=== PATIENT | female | born 1975 | race Caucasian/White ===

== ENCOUNTER 2016-11-09 14:32 | Emergency (ER) | payer OTHER ==
[~2016-11-09] VITALS: Ht 160 cm; Wt 60.0 kg
[~2016-11-09 14:32] MED LIST: AMOX500T PO; LIDO2%S2 PO; WELL150T PO
[2016-11-09 14:36] VITALS: BP 166/104; PULSE 104; RESP 16; TEMP 98.1; O2SAT 96
[2016-11-09] MEDS ORDERED: ROBA750T PO (14:53)
[2016-11-09] MEDS ORDERED: IBUP-232 PO (14:53)
--- NOTE | 2016-11-09 14:54 | PD ---
HPI Chief Complaint: Injury Time Seen by Provider: 14:49 Travel History International Travel<30 days: No Contact w/Intl Traveler<30days: No Traveled to known affect area: No History of Present Illness HPI 5-year-old female presents to the emergency department for evaluation of low back pain that occurred at 1 PM today. She states this started after she bent over at work. Patient denies a history of back pain. She denies a traumatic injury. No fevers or chills. No loss of bowel or bladder control. No saddle anesthesias. She states the pain did radiate down her right leg, but that has resolved. She took ibuprofen approximately 1 PM which did help improve her pain. Patient states she has no chronic medical problems and takes no prescribed medications. She denies any chance of . Patient is ambulatory in the emergency department. [facility] Past Medical History Cancer: Yes (SKIN CANCER SQUAMOUS) Diabetes: No Glaucoma: No Hepatitis: No Hiatal Hernia: No Hypertension: No Thyroid Disease: No ?: Not LMP: 11/09/16 Past Surgical History Abdominal Surgery: No Cardiac Surgery: No Ear Surgery: No Endocrine Surgery: No Eye Surgery: No Genitourinary Surgery: No Gynecologic Surgery: No Oral Surgery: No Pacemaker: No Thoracic Surgery: No Social History Alcohol Use: Yes (RARELY) Tobacco Use: No Substance Use: No Allergies-Medications (Allergen,Severity, Reaction): Coded Allergies: No Known Allergies (Verified , 11/09/16) Reported Meds & Prescriptions Reported Meds & Active Scripts Active No Active Prescriptions or Reported Medications Review of Systems Except as stated in HPI: all other systems reviewed are Neg Physical Exam Narrative GENERAL: Well-developed well-nourished female patient, ambulatory. Afebrile. SKIN: Warm and dry. HEAD: Normocephalic. Atraumatic. EYES: No scleral icterus. No injection or drainage. NECK: Supple, trachea midline. No JVD or lymphadenopathy. CARDIOVASCULAR: Regular rate and rhythm without murmurs, gallops, or rubs. RESPIRATORY: Breath sounds equal bilaterally. No accessory muscle use. Lungs sounds are clear to auscultation. GASTROINTESTINAL: Abdomen soft, non-tender, nondistended. MUSCULOSKELETAL: No cyanosis, or edema. Bilateral upper and lower extremity strength 5/5. All extremities are neurovascularly intact. BACK: No obvious deformity. No CVA tenderness. Tenderness to palpation over midline lumbar spine and bilateral lumbar paraspinal musculature. Straight leg raise is negative bilaterally. Data Data Last Documented VS Vital Signs Date Time Temp Pulse Resp B/P Pulse Ox O2 Delivery O2 Flow Rate FiO2 11/09/16 14:36 98.1 104 16 166/104 96 Room Air MDM Medical Decision Making Medical Screen Exam Complete: Yes Emergency Medical Condition: Yes Medical Record Reviewed: Yes Differential Diagnosis Muscle strain versus muscle spasm versus herniated disc Narrative Course 41-year-old female presents to the emergency department for evaluation of low back pain that started out 1 PM today, 2 hours ago after bending over. Physical exam is reassuring. Symptoms are most consistent with a muscle strain. Patient is given Robaxin 500 mg by mouth. She'll be discharged with a prescription for ibuprofen and Robaxin. She is to follow-up with Worker's Comp. Diagnosis Primary Impression: Low back pain Qualified Code: M54.5 - Acute bilateral low back pain without sciatica Additional Impression: Muscle strain Referrals: Primary Care Physician call for appointment Patient Instructions: Acute Low Back Pain (ED), General Instructions, Muscle Strain (ED) Additional Instructions: Take ibuprofen as instructed as needed with food for pain. Take Robaxin as directed as needed. Rotate ice/heat. Follow-up with your worker's comp doctor. Return to the emergency department for any acute worsening of symptoms. Med/Other Pt SpecificInfo: Prescription(s) given Scripts Methocarbamol (Robaxin)750 Mg [id number] Mg PO TID PRN (MUSCLE SPASM) #21 TAB Ref 0 Prov:Danelle Heart 11/09/16 Ibuprofen 600 Mg Uic486 Mg PO TID PRN (PAIN SCALE 1 TO 10) #21 TAB Ref 0 Prov:Danelle Heart 11/09/16 Disposition: 01 DISCHARGE HOME Condition: Stable Danelle Heart Nov 09, 2016 14:54
[2016-11-09] MEDS ORDERED: METHOCARBAMOL 500 MG TAB PO ONE (15:00)
== END 2016-11-09 15:39 | disposition home or self-care (01) ==
LOC: NEPB 14:32
DX: M54.5 Low back pain (principal)
CPT/HCPCS: 99283

== ENCOUNTER → 2017-04-01 | Outpatient (CLI) | payer OTHER ==
[~2017-04-01] MED LIST changes: -AMOX500T PO; +IBUP-232 PO; -LIDO2%S2 PO; +ROBA750T PO; -WELL150T PO
[2017-04-01 12:49] LABS: AUTOMATED NEUTROPHIL # 4.3 TH/MM3 (1.8-7.7); BASOPHIL # 0.1 TH/MM3 (0-0.2); BASOPHIL % 0.9 % (0.0-2.0); EOSINOPHIL # 0.2 TH/MM3 (0-0.4); EOSINOPHIL % 3.3 % (0.0-4.0); HEMATOCRIT 39.8 % (35.0-46.0); HEMO FLAGS DIFF FINAL; LYMPH % 26.8 % (9.0-44.0); LYMPHOCYTE # 1.9 TH/MM3 (1.0-4.8); MEAN CELL VOLUME 89.9 FL (80.0-100.0); MEAN CORPUSCULAR HEMOGLOBIN 29.6 PG (27.0-34.0); MEAN CORPUSCULAR HGB CONC 32.9 % (32.0-36.0); MONO % 8.3 % (0.0-8.0); NEUT % 60.7 % (16.0-70.0); PLATELET COUNT 223 TH/MM3 (150-450); RED BLOOD COUNT 4.43 MIL/MM3 (4.00-5.30); RED CELL DISTRIBUTION WIDTH 13.3 % (11.6-17.2); WHITE BLOOD COUNT 7.1 TH/MM3 (4.0-11.0)
[2017-04-01 13:18] LABS: ANION GAP 5 MEQ/L (5-15); AST (GOT) 9 U/L (15-37); BICARBONATE 29.8 MEQ/L (21.0-32.0); BLOOD UREA NITROGEN 13 MG/DL (7-18); CHLORIDE 104 MEQ/L (98-107); POTASSIUM 3.7 MEQ/L (3.5-5.1); SODIUM (NA) 139 MEQ/L (136-145)
[2017-04-01 13:20] LABS: GLOMERULAR FILTRATION RATE 94 ML/MIN (>89); GLUCOSE,FASTING 89 MG/DL (74-99)
[2017-04-01 13:34] LABS: ALKALINE PHOSPHATASE 69 U/L (45-117); ALT (GPT) 22 U/L (10-53); LDL CHOLESTEROL 92 MG/DL (0-99); TOTAL BILIRUBIN ADULT 0.4 MG/DL (0.2-1.0)
== END ==
LOC: OLAB 07:54
DX: R53.81 Other malaise (principal); Z79.899 Other long term (current) drug therapy
CPT/HCPCS: 80053; 80061; 84443; 85025

== ENCOUNTER → 2017-05-28 | Day surgery (SDC) | payer OTHER ==
[~2017-05-28] VITALS: Ht 160 cm; Wt 57.6 kg
[~2017-05-28] MED LIST changes: +*morphine SULFATE 8 MG/ML PERIprocedure ONLY ONE; +APREPITANT 40 MG CAP ONE; +BACITRACIN TOP OINT 15 GM TUBE ONE; +BUPIVACAINE/EPINEPHRINE 0.5% PF 10 ML VIAL ONE; +CHLORHEXIDINE GLUCONATE 2 % 1 PACK (2 CLOTHS) TOPICAL PRN; +DEXAMETHASONE SOD PHOS 4 MG/ML VIAL ONE; +DEXMEDETOMIDINE HCL 200 MCG/2 ML VIAL ONE; +DO NOT ADM ANY ANTICOAGULANT DRUGS PRN; +FAMOTIDINE 20 MG/2 ML VIAL ONE; +GELATIN 12 MM/7 MM FOAM ONE; -IBUP-232 PO; +INSULIN HUMAN REGULAR 1,000 UNITS/10 ML VIAL SQ PRN; +LACTATED RINGER'S 1000 ML IV PRN; +LIDOCAINE 1%/EPINEPHrine 1:100,000 SOLN 20 ML VIAL ONE; +METOPROLOL TARTRATE 25 MG TAB PO PRN; +MIDAZOLAM HCL 2 MG/2 ML VIAL ONE; +NEOSTIGMINE 3 MG/3 ML SYR IV ONE; +ONDANSETRON HCL 4 MG/2 ML VIAL IV PUSH ONE; +ONDANSETRON HCL 4 MG/2 ML VIAL IV PUSH PRN; +ONDANSETRON HCL 4 MG/2 ML VIAL ONE; +OXYMETAZOLINE HCL 0.05% 15 ML NASAL SPRAY ONE; +POVIDONE IODINE 5% (ANTISEPSIS KIT) 4 APPLICATIONS EACH NARE PRN; +PROPOFOL 200 MG/20 ML AMP IV ONE; -ROBA750T PO; +SODIUM CHLORID 0.9% 500 ML IV PRN; +WELLTAB39 PO; +ceFAZolin INJ 1,000 MG VIAL IV ONE; +fentaNYL CITRATE 250 MCG/5 ML AMP ONE; +hydrALAZINE HCL 20 MG/ML VIAL IV ONE; +hydrALAZINE HCL 20 MG/ML VIAL ONE
[2017-05-28 10:23] VITALS: BP 111/73; PULSE 76; RESP 20; TEMP 98.4; O2SAT 100
[2017-05-28 10:40] LABS: AUTOMATED NEUTROPHIL # 3.9 TH/MM3 (1.8-7.7); BASOPHIL # 0.1 TH/MM3 (0-0.2); BASOPHIL % 1.3 % (0.0-2.0); EOSINOPHIL # 0.3 TH/MM3 (0-0.4); EOSINOPHIL % 4.5 % (0.0-4.0); HEMATOCRIT 40.4 % (35.0-46.0); HEMO FLAGS DIFF FINAL; LYMPH % 30.8 % (9.0-44.0); LYMPHOCYTE # 2.2 TH/MM3 (1.0-4.8); MEAN CELL VOLUME 89.9 FL (80.0-100.0); MEAN CORPUSCULAR HEMOGLOBIN 30.4 PG (27.0-34.0); MEAN CORPUSCULAR HGB CONC 33.9 % (32.0-36.0); MONO % 8.5 % (0.0-8.0); NEUT % 54.9 % (16.0-70.0); PLATELET COUNT 206 TH/MM3 (150-450)
[2017-05-28] MEDS: ACETAMINOPHEN/CODEINE 300 MG/30 MG TAB PO PRN ×2 (16:40→17:10)
[2017-05-28 17:30] VITALS: PULSE 88; TEMP 98.8; O2SAT 99
[2017-05-28 17:45] VITALS: BP 145/96; RESP 16
--- NOTE | 2017-05-29 13:04 | MP ---
cc: LUCIANO ROWE MD DATE OF SURGERY 05/28/2017 PREOPERATIVE DIAGNOSES Nasal obstruction, nasal septal deviation, turbinate hypertrophy. POSTOPERATIVE DIAGNOSES Nasal obstruction, nasal septal deviation, turbinate hypertrophy as well as nasal polyps. PROCEDURE PERFORMED 1. Nasal polypectomy (code 70289) 2. Robyn bullosa excision, left side (code 82622). 3. Open septal reconstruction (code 91768). 4. Turbinoplasty submucous bilaterally (code 71310). FINDINGS Nasal septal deviation to the right. 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 Left greater than right middle turbinate polyposis. BLOOD LOSS Minimal. SPECIMEN Nasal polyp on the left. IMPLANTS Telfa pad placed bilaterally. Nasopore dressing placed bilaterally. COMPLICATIONS None. DISPOSITION The postanesthesia care unit in stable condition. INDICATIONS FOR SURGERY The patient is a pleasant 42-year-old female with a history of nasal obstruction refractory to maximal medical therapy to include a nasal steroids, nasal antihistamines, oral antibiotics and oral antihistamines. Physical examination with a nasal endoscopy as well as CT scan was consistent with nasal septal radiation to the right, turbinate hypertrophy bilaterally as well as left robyn bullosa of the middle turbinate. Thus was elected to proceed with surgery for the above. DESCRIPTION OF SURGERY After informed consent was obtained, the patient was brought to the main operating room for she underwent general endotracheal anesthesia. Head turned 90 degrees in preparation for surgery. Attention was paid to the patient's nasal cavity, pledgets impregnated with Afrin were inserted into the patient's nasal cavity bilaterally. Of note there was obstruction easily noted on the left with large inferior turbinates. After approximately 5 minutes, 10 mL of 0.5% Marcaine with epinephrine 1:200,000 was injected into the patient's septum and throughout the patient's lateral nasal sidewalls and turbinates. The patient was now prepped and draped in standard fashion for nasal surgery. After approximately 10 minutes the equipment was brought into the field using video assisted endoscopic guidance the nose was carefully examined with findings as previously noted. The septum was addressed. Specifically a left subcutaneous facial incision was made. Nasal perichondrial flaps were raised on the left. Dissection performed__ along the medial edge, dissection was done on the contralateral side of the septum and ___offending septal cartilage was removed and/or repositioned. Once the septum was ___towards the midline, анна-transfixion incision was closed with a 4-0 chromic and a whipstitch was used ___to coapt____ septum. Inferior turbinates were addressed. Submucous turbinoplasty was begun___ by small incision was made in the left anterior turbinate at the anterior aspect. Dissection was made overlying the bone __and in the__ tissue of the inferior turbinate with microdebrider ___ ____ co-blater was used to coblate the turbinate tissues surrounding the mucosal edge. The inferior turbinate was then out fractured thereby greatly enlarging the airway. The right inferior turbinate was addressed in a similar fashion with submucous___ coblation and microdebriding to decrease the size of the inferior turbinate and this was followed by inferior turbinate out fracture on the right. The endoscope was used to further visualize nasopharynx. The left robyn bullosa middle turbinate was very large in nature. This was reinjected with local anesthesia. A __sickle knife____ was used to excise the lateral two- thirds of the robyn bullosa, and there was noticeably large polypoid tissue of the left middle turbinate as well. This was removed and sent for pathology. Microdebrider was used to smooth the edges of the remaining middle turbinate on the left. The patient tolerated the procedure well. The airway was noted to be widely patent at this time. Telfa pads were placed bilaterally. The patient's nose was secured underneath with the suture. This was done after Nasopore dressing was placed bilaterally in the nasal cavity lateral to the mild turbinate. The patient tolerated the procedure well, was awakened from anesthesia and transferred to the recovery room in stable condition. There were no complications. Luciano Rowe MD CCP/KK /3:16 PM /12:54 PM [facility]ITALKeke
== END | disposition home or self-care (01) ==
LOC: HSDC 09:29
PROVIDERS: ATTEND Otolaryngology Otolaryngology/Facial Plastic Surgery
PROC: 09SM0ZZ Reposition Nasal Septum, Open Approach (ICD-10-PCS; principal; 2017-05-28 12:39)
PROC: 09TL8ZZ Resection of Nasal Turbinate, Via Natural or Artificial Opening Endoscopic (ICD-10-PCS; principal; 2017-05-28 12:39)
PROC: 09BL8ZX Excision of Nasal Turbinate, Via Natural or Artificial Opening Endoscopic, Diagnostic (ICD-10-PCS; principal; 2017-05-28 12:39)
PROC: 09BL8ZZ Excision of Nasal Turbinate, Via Natural or Artificial Opening Endoscopic (ICD-10-PCS; principal; 2017-05-28 12:39)
DX: J34.89 Other specified disorders of nose and nasal sinuses (principal); J34.2 Deviated nasal septum; J34.3 Hypertrophy of nasal turbinates; J31.0 Chronic rhinitis; J33.8 Other polyp of sinus; F32.9 Major depressive disorder, single episode, unspecified; Z87.891 Personal history of nicotine dependence
CPT/HCPCS: 00160; 21335; 30140; 31240; 85025; 88304; J0360; J0690; J1100; J2250; J2270; J2405; J2710; J3010; J7120; J8501; 88305

== ENCOUNTER 2017-08-06 13:36 | Emergency (ER) | payer OTHER ==
[~2017-08-06] VITALS: Ht 160 cm; Wt 60.0 kg
[~2017-08-06 13:36] MED LIST changes: -*morphine SULFATE 8 MG/ML PERIprocedure ONLY ONE; -APREPITANT 40 MG CAP ONE; -BACITRACIN TOP OINT 15 GM TUBE ONE; -BUPIVACAINE/EPINEPHRINE 0.5% PF 10 ML VIAL ONE; -CHLORHEXIDINE GLUCONATE 2 % 1 PACK (2 CLOTHS) TOPICAL PRN; -DEXAMETHASONE SOD PHOS 4 MG/ML VIAL ONE; -DEXMEDETOMIDINE HCL 200 MCG/2 ML VIAL ONE; -DO NOT ADM ANY ANTICOAGULANT DRUGS PRN; -FAMOTIDINE 20 MG/2 ML VIAL ONE; -GELATIN 12 MM/7 MM FOAM ONE; -INSULIN HUMAN REGULAR 1,000 UNITS/10 ML VIAL SQ PRN; -LACTATED RINGER'S 1000 ML IV PRN; -LIDOCAINE 1%/EPINEPHrine 1:100,000 SOLN 20 ML VIAL ONE; -METOPROLOL TARTRATE 25 MG TAB PO PRN; -MIDAZOLAM HCL 2 MG/2 ML VIAL ONE; -NEOSTIGMINE 3 MG/3 ML SYR IV ONE; -ONDANSETRON HCL 4 MG/2 ML VIAL IV PUSH ONE; -ONDANSETRON HCL 4 MG/2 ML VIAL IV PUSH PRN; -ONDANSETRON HCL 4 MG/2 ML VIAL ONE; -OXYMETAZOLINE HCL 0.05% 15 ML NASAL SPRAY ONE; -POVIDONE IODINE 5% (ANTISEPSIS KIT) 4 APPLICATIONS EACH NARE PRN; -PROPOFOL 200 MG/20 ML AMP IV ONE; -SODIUM CHLORID 0.9% 500 ML IV PRN; -ceFAZolin INJ 1,000 MG VIAL IV ONE; -fentaNYL CITRATE 250 MCG/5 ML AMP ONE; -hydrALAZINE HCL 20 MG/ML VIAL IV ONE; -hydrALAZINE HCL 20 MG/ML VIAL ONE
[2017-08-06 13:40] VITALS: BP 190/126; PULSE 130; RESP 20; TEMP 98.9; O2SAT 96
--- NOTE | 2017-08-06 13:49 | PD ---
Physical Exam Date Seen by Provider: Aug 06, 2017 Time Seen by Provider: 13:48 Narrative 42 yo female here for evaluation of elevated HR and BP. Seen at the [facility] and found to have the elevated vital signs. No pain. No other medical issues. Vitals are stable in triage except for elevated BP and HR. Awaiting bed placement. Data Data Last Documented VS Vital Signs Date Time Temp Pulse Resp B/P (MAP) Pulse Ox O2 Delivery O2 Flow Rate FiO2 08/06/17 13:40 98.9 130 20 190/126 (147) 96 Room Air [facility] Medical Record Reviewed: Yes Supervised Visit with MIRANDA: Dilan Alfonso Aug 06, 2017 13:49
--- NOTE | 2017-08-06 14:50 | PD ---
HPI Chief Complaint: Abnormal Results Time Seen by Provider: 14:21 Travel History International Travel<30 days: No Contact w/Intl Traveler<30days: No Traveled to known affect area: No History of Present Illness HPI 42 YO F presents to the ED for evaluation of elevated BP and HR while at a wellness screening today. The patient reports a dull, 4/10 headache on the right , from the back of the neck to behind the eye. No alleviating or exacerbating factors reported. She states this is similar to previous headaches. She denies palpitations, CP, dizziness, vision changes, N/V, difficulties with word finding , unilateral weakness, facial droop. She states that she saw her primary care ~ 2 weeks ago and "everything was fine." She states that she began taking Vyvanse at that time. Also endorses taking Wellbutrin daily. PFSH Past Medical History Cancer: Yes (SKIN CANCER SQUAMOUS) Cardiovascular Problems: No Diabetes: No Endocrine: No Glaucoma: No Genitourinary: No Hepatitis: No Hiatal Hernia: No Hypertension: No Immune Disorder: No Musculoskeletal: No Neurologic: No Psychiatric: Yes (DEPRESSION, ANXIETY) Reproductive: No Respiratory: Yes (SINUS ISSUES) Thyroid Disease: No ?: Not LMP: 07/22/17 Past Surgical History Abdominal Surgery: Yes (GALLBLADDER) AICD: No Body Medical Devices: BREAST IMPLANTS Cardiac Surgery: No Ear Surgery: No Endocrine Surgery: No Eye Surgery: No Genitourinary Surgery: No Gynecologic Surgery: No Joint Replacement: No Oral Surgery: No Pacemaker: No Thoracic Surgery: No Social History Alcohol Use: Yes (RARELY) Tobacco Use: No Substance Use: No Allergies-Medications (Allergen,Severity, Reaction): Coded Allergies: No Known Allergies (Verified , 08/06/17) Reported Meds & Prescriptions Reported Meds & Active Scripts Active Reported Vyvanse (Lisdexamfetamine Dimesylate) 70 Mg Cap 70 Mg PO DAILY Wellbutrin Xl 24 HR (Bupropion HCl) 300 Mg Tab 300 Mg PO DAILY Review of Systems Except as stated in HPI: all other systems reviewed are Neg Physical Exam Narrative GENERAL: Well-nourished, well-developed nontoxic appearing white female in no acute distress. SKIN: Focused skin assessment warm/dry. HEAD: Normocephalic. Atraumatic EYES: No scleral icterus. No injection or drainage. PERRLA. EOMI. FUNDUSCOPIC EXAM: The bilateral funduscopic exam appeared within normal limits without papilledema, A-V nicking or blood associated with the optic disc. NECK: Supple, trachea midline. No JVD or lymphadenopathy. CARDIOVASCULAR: Regular rate and rhythm without murmurs, gallops, or rubs. RESPIRATORY: Breath sounds clear and equal bilaterally. No accessory muscle use. GASTROINTESTINAL: Abdomen soft, non-tender, nondistended. MUSCULOSKELETAL: No cyanosis, or edema. NEUROLOGICAL: Awake and alert. Cranial nerves II through XII intact. Motor and sensory grossly within normal limits. Five out of 5 muscle strength in all muscle groups. Normal speech. BACK: Nontender without obvious deformity. No CVA tenderness. Data Data Last Documented VS Vital Signs Date Time Temp Pulse Resp B/P (MAP) Pulse Ox O2 Delivery O2 Flow Rate FiO2 08/06/17 15:43 98 17 99 Room Air 08/06/17 15:43 97.9 167/100 (122) Orders Orders Electrocardiogram (08/06/17 14:31) Complete Blood Count With Diff (08/06/17 14:40) Comprehensive Metabolic Panel (08/06/17 14:40) Prothrombin Time / Inr (Pt) (08/06/17 14:40) Act Partial Throm Time (Ptt) (08/06/17 14:40) Ecg Monitoring (08/06/17 14:40) Iv Access Insert/Monitor (08/06/17 14:40) Blood Pressure (08/06/17 14:40) Ct Brain W/O Iv Contrast(Rout) (08/06/17 14:40) Urinalysis - C+S If Indicated (08/06/17 14:40) Ed Urine Pregnancytest Poc (08/06/17 14:40) Ketorolac Inj (Toradol Inj) (08/06/17 15:30) Ed Discharge Order (08/06/17 17:42) Labs Laboratory Tests Test 08/06/17 15:20 White Blood Count 7.2 TH/MM3 Red Blood Count 4.65 MIL/MM3 Hemoglobin 14.4 GM/DL Hematocrit 41.7 % Mean Corpuscular Volume 89.7 FL Mean Corpuscular Hemoglobin 30.9 PG Mean Corpuscular Hemoglobin Concent 34.4 % Red Cell Distribution Width 12.8 % Platelet Count 252 TH/MM3 Mean Platelet Volume 9.8 FL Neutrophils (%) (Auto) 58.8 % Lymphocytes (%) (Auto) 29.6 % Monocytes (%) (Auto) 7.7 % Eosinophils (%) (Auto) 3.4 % Basophils (%) (Auto) 0.5 % Neutrophils # (Auto) 4.2 TH/MM3 Lymphocytes # (Auto) 2.1 TH/MM3 Monocytes # (Auto) 0.6 TH/MM3 Eosinophils # (Auto) 0.2 TH/MM3 Basophils # (Auto) 0.0 TH/MM3 CBC Comment DIFF FINAL Differential Comment Prothrombin Time 10.8 SEC Prothromb Time International Ratio 1.0 RATIO Activated Partial Thromboplast Time 24.7 SEC Urine Color COLORLESS Urine Turbidity CLEAR Urine pH 7.0 Urine Specific [place] 1.002 Urine Protein NEG mg/dL Urine Glucose (UA) NEG mg/dL Urine Ketones NEG mg/dL Urine Occult Blood NEG Urine Nitrite NEG Urine Bilirubin NEG Urine Urobilinogen LESS THAN 2.0 MG/DL Urine Leukocyte Esterase NEG Urine RBC LESS THAN 1 /hpf Urine WBC 6 /hpf Urine Squamous Epithelial Cells 1 /hpf Microscopic Urinalysis Comment CULT NOT INDICATED Blood Urea Nitrogen 8 MG/DL Creatinine 0.69 MG/DL Random Glucose 89 MG/DL Total Protein 7.7 GM/DL Albumin 3.8 GM/DL Calcium Level 9.1 MG/DL Alkaline Phosphatase 74 U/L Aspartate Amino Transf (AST/SGOT) 13 U/L Alanine Aminotransferase (ALT/SGPT) 24 U/L Total Bilirubin 0.6 MG/DL Sodium Level 138 MEQ/L Potassium Level 4.1 MEQ/L Chloride Level 106 MEQ/L Carbon Dioxide Level 26.4 MEQ/L Anion Gap 6 MEQ/L Estimat Glomerular Filtration Rate 94 ML/MIN [facility] Medical Decision Making Medical Screen Exam Complete: Yes Emergency Medical Condition: Yes Differential Diagnosis hypertension versus medication side effect versus cephalgia versus other Narrative Course 42 YO F presents to the ED for evaluation of elevated BP and HR while at a wellness screening today. The patient reports a dull, 4/10 headache on the right , from the back of the neck to behind the eye, similar to previous headaches. She denies palpitations, CP, dizziness, vision changes, N/V, difficulties with word finding, unilateral weakness, facial droop. She began taking Vyvanse 2 weeks ago. Vitals reviewed. Patient is tachycardic and hypertensive on presentation. No focal neuro deficits. Exam otherwise reassuring. Patient was administered 30 mg Toradol IV. EKG rate 98, sinus rhythm. NM 153, QRS 98, QTC 394 ms. Normal axis. No ST changes. Reviewed by Dr. Patino. No abnormalities of CBC, CMP, coags, UA. CT of the brain reveals no acute disease per radiology read. On recheck the patient reports some improvement of her headache. I discussed the patient with Dr. Patino. I suspect that her symptoms are secondary to recently beginning Vyvanse. I reviewed the patient's record and she has had hypertension over her last few visits. She is instructed to keep a log of her blood pressure, follow up with her primary care provider. She indicated understanding of instructions and is agreeable the care plan. She is stable and discharged home. Diagnosis Primary Impression: Tachycardia, unspecified Additional Impressions: Hypertension Qualified Codes: I10 - Essential (primary) hypertension Cephalgia Qualified Codes: R51 - Headache Referrals: Primary Care Physician Patient Instructions: General Instructions, Hypertension (ED), Tachycardia (ED) Additional Instructions: Rest, hydrate. Return to normal, gentle activities as tolerated. Keep a log of your blood pressures to present to your primary care upon follow- up. Return to the ED for any urgent or emergent medical condition. Disposition: 01 DISCHARGE HOME Condition: Stable Pilar Carter Aug 06, 2017 14:50
[2017-08-06] MEDS ORDERED: KETOROLAC TROMETHAMINE 30 MG/ML (IVP) VIAL IV PUSH ONE (15:30)
[2017-08-06] MEDS ORDERED: LISD70 PO (15:41)
[2017-08-06 15:43] VITALS: BP 167/100; PULSE 99; RESP 17; TEMP 97.9; O2SAT 100
[2017-08-06 16:18] LABS: AUTOMATED NEUTROPHIL # 4.2 TH/MM3 (1.8-7.7); BASOPHIL % 0.5 % (0.0-2.0); EOSINOPHIL # 0.2 TH/MM3 (0-0.4); EOSINOPHIL % 3.4 % (0.0-4.0); HEMATOCRIT 41.7 % (35.0-46.0); HEMO FLAGS DIFF FINAL; LYMPH % 29.6 % (9.0-44.0); LYMPHOCYTE # 2.1 TH/MM3 (1.0-4.8); MEAN CELL VOLUME 89.7 FL (80.0-100.0); MEAN CORPUSCULAR HEMOGLOBIN 30.9 PG (27.0-34.0); MEAN CORPUSCULAR HGB CONC 34.4 % (32.0-36.0); MONO % 7.7 % (0.0-8.0); NEUT % 58.8 % (16.0-70.0); PLATELET COUNT 252 TH/MM3 (150-450); RED BLOOD COUNT 4.65 MIL/MM3 (4.00-5.30); RED CELL DISTRIBUTION WIDTH 12.8 % (11.6-17.2); WHITE BLOOD COUNT 7.2 TH/MM3 (4.0-11.0)
[2017-08-06 16:25] LABS: APTT (PATIENT) 24.7 SEC (24.3-30.1); PROTHROMBIN TIME - PATIENT 10.8 SEC (9.8-11.6)
[2017-08-06 16:30] LABS: BLOOD, URINE NEG (NEG); COMMENT (UR) CULT NOT INDICATED; CULTURE IF INDICATED CULT NOT INDICATED; GLUCOSE,URINE NEG (NEG); KETONE, URINE NEG (NEG); NITRITE,URINE NEG (NEG); SQUAMOUS EPITHELIAL CELL URINE 1 /hpf (0-5); URINE COLOR COLORLESS (YELLW/STRAW)
[2017-08-06 16:43] LABS: ALT (GPT) 24 U/L (10-53); ANION GAP 6 MEQ/L (5-15); AST (GOT) 13 U/L (15-37); BICARBONATE 26.4 MEQ/L (21.0-32.0); BLOOD UREA NITROGEN 8 MG/DL (7-18); CHLORIDE 106 MEQ/L (98-107); GLOMERULAR FILTRATION RATE 94 ML/MIN (>89); POTASSIUM 4.1 MEQ/L (3.5-5.1); SODIUM (NA) 138 MEQ/L (136-145)
[2017-08-06 16:46] LABS: ALKALINE PHOSPHATASE 74 U/L (45-117); TOTAL BILIRUBIN ADULT 0.6 MG/DL (0.2-1.0)
--- NOTE | 2017-08-06 17:31 | RADRPT ---
EXAM DATE/TIME: 08/06/2017 16:45 [place] COMPARISON: No previous studies available for comparison. INDICATIONS : Headache, hypertension. RADIATION DOSE: 56.35 CTDIvol (mGy) MEDICAL HISTORY : Hypertension. SURGICAL HISTORY : None. ENCOUNTER: Initial ACUITY: 2 days PAIN SCALE: 7/10 LOCATION: Bilateral occipital TECHNIQUE: Multiple contiguous axial images were obtained of the head. Using automated exposure control and adj ustment of the mA and/or kV according to patient size, radiation dose was kept as low as reasonably a chievable to obtain optimal diagnostic quality images. DICOM format image data is available electro nically for review and comparison. FINDINGS: CEREBRUM: The ventricles are normal for age. No evidence of midline shift, mass lesion, hemorrhage or acute in farction. No extra-axial fluid collections are seen. POSTERIOR FOSSA: The cerebellum and brainstem are intact. The 4th ventricle is midline. The cerebellopontine angle i s unremarkable. EXTRACRANIAL: The visualized portion of the orbits is intact. SKULL: The calvaria is intact. No evidence of skull fracture. CONCLUSION: No acute disease. Domingo Rosario MD on August 06, 2017 at 17:28 Board Certified Radiologist. This report was verified electronically.
--- NOTE | 2017-08-07 23:57 | EKG ---
Date Performed: 08/06/2017 Time Performed: 15:57:40 PTAGE: 42 years EKG: Sinus rhythm BORDERLINE LEFT AXIS DEVIATION BORDERLINE ECG NO PREVIOUS TRACING DOCTOR: Andreas Garcia Interpretating Date/Time 08/07/2017 23:56:49
== END 2017-08-06 17:30 | disposition home or self-care (01) ==
LOC: NEPC 13:36
DX: R00.0 Tachycardia, unspecified (principal); I10 Essential (primary) hypertension; Z79.899 Other long term (current) drug therapy
CPT/HCPCS: 70450; 80053; 81001; 84703; 85025; 85610; 85730; 93005; 96374; 99285; J1885